=== PATIENT | male | born 1980 | race Caucasian/White ===

== ENCOUNTER 2017-10-28 17:42 | Emergency (ER) | payer BC ==
[2017-10-28 19:43] VITALS: BP 110/72
[2017-10-28] MEDS ORDERED: Amoxicillin/Clavulanate TAB* 875 MG PO ONE (19:54)
--- NOTE | 2017-10-28 20:32 | UC ---
Knee Pain HPI - HPI Summary HPI Summary: Patient states that on the eighth of this month he dove during a softball game and he drove his left knee into the ground. He states that the knee was swollen and started to get a little better however the swelling is now worsening again. He reports that it feels tense in the joint and he feels there is a lot of fluid but he states is not really that painful infected can walk without pain. He denies any locking or giving out he denies any associated fever and has no limited range of motion. - History of Current Complaint Chief Complaint: UCLowerExtremity Stated Complaint: LEFT KNEE INJURY Time Seen by Provider: 10/28/17 19:47 Hx Obtained From: Patient Onset/Duration: Gradual Onset Pain Intensity: 8 Aggravating Factor(s): Nothing Alleviating Factor(s): Nothing Associated Signs And Symptoms: Positive: Swelling. Negative: Redness, Weakness , Numbness, Tingling - Risk Factors Septic Arthritis Risk Factor: Negative Gout Risk Factor: Negative - Allergies/Home Medications Allergies/Adverse Reactions: Allergies Allergy/AdvReac Type Severity Reaction Status Date / Time No Known Allergies Allergy Verified 10/28/17 19:33 Home Medications: Home Medications Ibuprofen TAB* [Advil TAB*] 400 mg PO Q6H PRN 10/28/17 [History Confirmed ] PMH/Surg Hx/FS Hx/Imm Hx Previously Healthy: Yes - Surgical History Surgical History: Yes Surgery Procedure, Year, and Place: vasectomy 4-5 years ago - Family History Known Family History: Positive: None - Social History Occupation: Employed Full-time Lives: With Family Alcohol Use: None Substance Use Type: None Smoking Status (MU): Never Smoked Tobacco - Immunization History Hx Tetanus, Diphtheria Vaccination: No Vaccination Up to Date: Yes Immunizations Comment: no flu shot this year Review of Systems Constitutional: Negative Skin: Negative Eyes: Negative ENT: Negative Respiratory: Negative Cardiovascular: Negative Gastrointestinal: Negative Genitourinary: Negative Motor: Negative Neurovascular: Negative Musculoskeletal: Edema - L knee Neurological: Negative Psychological: Negative Is Patient Immunocompromised?: No All Other Systems Reviewed And Are Negative: Yes Physical Exam Triage Information Reviewed: Yes Appearance: Well-Appearing Vital Signs: Initial Vital Signs Temp 98.4 F 10/28/17 19:34 Pulse 76 10/28/17 19:34 Resp 15 10/28/17 19:34 BP 110/72 10/28/17 19:34 Pulse Ox 100 10/28/17 19:34 Vital Signs Reviewed: Yes Eyes: Positive: Conjunctiva Clear ENT: Positive: Normal ENT inspection Neck: Positive: Supple, Nontender, No Lymphadenopathy Respiratory: Positive: Lungs clear, Normal breath sounds Cardiovascular: Positive: RRR, No Murmur Abdomen Description: Positive: Nontender, No Organomegaly, Soft Bowel Sounds: Positive: Present Musculoskeletal: Positive: Other: - LLE exam: Hip is without deformity or tenderness. Left knee has obvious mild to moderate suprapatellar swelling. This some very slight tenderness to palpation over the medial joint line as well as the distal, quadricep; however, I cannot appreciate a deficit over the area of tenderness in the quadricep. The joint has no gross laxity on valgus varus anterior posterior stressing. The patella is not ballotable. Passive and active range of motion are intact. The Achilles tendon is nontender and intact the ankle and foot are atraumatic and foot has gross sensorivascular motor function. Diagnostics - Radiology No standard instances Xray Interpretation: Positive (See Comments) - wet read L knee: no fx or dislocation. + STS anterior knee and small effusion. Knee Pain Course/Dx - Course Course Of Treatment: no concern for infection. no fx or dislocation. exam suggest distal quadriceps injury. will viji, crutches and ortho f/u. - Differential Dx/Diagnosis Provider Diagnoses: ACUTE SWELLING LEFT ANTERIOR KNEE. QUADRICEPS TENDON STRAIN. Discharge - Sign-Out/Discharge Documenting (check all that apply): Patient Departure - Discharge Plan Condition: Stable Disposition: HOME Patient Education Materials: Swollen Knee Joint (ED), Muscle Strain (DC) Referrals: Nicky Musa NP [Primary Care Provider] - If Needed Arsalan Oglesby MD [Medical Doctor] - As Soon As Possible Additional Instructions: VIJI DURING DAY AND REMOVE FOR BEDTIME PLUS CRUTCHES UNTIL CLEARED. - Billing Disposition and Condition Condition: STABLE Disposition: Home
--- NOTE | 2017-10-29 07:58 | RAD ---
INDICATION: Left knee injury COMPARISON: None TECHNIQUE: AP, lateral, and oblique views were obtained. FINDINGS: There are no acute osseous findings. The knee articulates normally. There is no significant joint effusion. There is a small amount of prepatellar edema, however. IMPRESSION: PREPATELLAR EDEMA, OTHERWISE NEGATIVE.
== END 2017-10-28 20:57 | disposition home or self-care (01) ==
LOC: UCCORT 17:42
DX: M25.462 Effusion, left knee (principal); S76.112A Strain of left quadriceps muscle, fascia and tendon, initial encounter; X50.0XXA Overexertion from strenuous movement or load, initial encounter; Y93.64 Activity, baseball; Y92.9 Unspecified place or not applicable
CPT/HCPCS: 99212; G0463